=== PATIENT | female | born 1990 | race Caucasian/White ===

== ENCOUNTER 2024-07-07 19:47 | Outpatient (REF) | payer BC, SELFPAY ==
[2024-07-10 14:08] LABS: Age Gdln ACOG Testing Note (.); HPV Aptima Negative (Negative); IGP, Aptima HPV, rfx 16/18,45 Note (.)
== END 2024-07-07 19:48 | disposition home or self-care (01) ==
LOC: LAB 19:47
PROVIDERS: PCP Family Medicine; Visit Provider Obstetrics & Gynecology
DX: Z01.419 Encounter for gynecological examination (general) (routine) without abnormal findings (principal)
CPT/HCPCS: 87624; 88175

== ENCOUNTER 2024-11-24 08:06 | Outpatient (OUT) | payer OTHER, SELFPAY ==
--- OUTSIDE RECORDS SUMMARY | 2024-11-24 08:13 | XMS_ITS | Encounter Summary ---
Author Organization [facility] Address [address] [place] [address] Care Team Providers Care Ranch Rider Name Role Phone Deja Ramsay MD Primary Care Provider [phone] Encounter Details Date Type Department Care Team (Late st Contact Info) Description 07/16/2024 Orders Only [facility] [address] [place] [address] Karly Acevedo MA [address] [place] [address] Social History Tobacco Use Types Packs/Day Years Used Date Smoking Tobacco: Never Smokeless Tobacco: Never Alcohol Use Standard Drinks/Week Comments Never 0 (1 standard drink = 0.6 oz pur e alcohol) B1300 Health Literacy Answer Date Recor ded How often do you need to hav e someone help you when you read instructions, pamphlets, or other written material from your doctor or pharmacy? Never 11/11/2023 Social Connection and Isolat ion Panel [NHANES] Answer Date Recorded In a typical week, how many times do you talk on the phone with family, friends, or neighbors? More than three times a week 11/11/2023 How often do you get togethe r with friends or relatives? More than three times a week 11/11/2023 How often do you attend chur ch or mandaen services? 1 to 4 times per year 11/11/2023 Do you belong to any clubs o r organizations such as taoist groups, unions, fraternal or athletic groups, or school groups? Yes 11/11/2023 How often do you attend meet ings of the clubs or organizations you belong to? More than 4 times per year 11/11/2023 Are you , , di vorced, , never , or living with a partner? 11/11/2023 AUDIT-C Answer Date Recorded Q1: How often do you have a drink containing alc ohol? Monthly or less 11/11/2023 Q2: How many drinks containi ng alcohol do you have on a typical day when you are drinking? 1 or 2 11/11/2023 Q3: How often do you have si x or more drinks on one occasion? Never 11/11/2023 Overall Financial Resource Strain (CARDIA) Answe r Date Recorded How hard is it for you to pa y for the very basics like food, housing, medical care, and heating? Not very hard 11/11/2023 [facility] - Occupational Stress Questionnaire Answer Date Recorded Do you feel stress - tense, restless, nervous, or anxious, or unable to sleep at night because your mind is troubled all the time - these days? Rather much 11/11/2023 Exercise Vital Sign Answer Date Recorde d On average, how many days pe r week do you engage in moderate to strenuous exercise (like a brisk walk)? 3 days 11/11/2023 On average, how many minutes do you engage in exercise at this level? 30 min 11/11/2023 Hunger Vital Sign Answer Date Recorded Within the past 12 months, y ou worried that your food would run out before you got the money to buy more. Sometimes true Within the past 12 months, t he food you bought just didn't last and you didn't have money to get more. Sometimes true PRAPARE - Transportation Answer Date Re corded In the past 12 months, has l ack of transportation kept you from medical appointments or from getting medications? No 10/23 In the past 12 months, has l ack of transportation kept you from meetings, work, or from getting things needed for daily living? No 11/11/2023 Housing Stability Vital Sign Answer Thien e Recorded In the last 12 months, was t here a time when you were not able to pay the mortgage or rent on time? No 11/11/2023 In the past 12 months, how m any times have you moved where you were living? 1 11/11/2023 At any time in the past 12 m [facility], were you homeless or living in a fdc (including now)? No 11/11/2023 Comments Unknown Sex and Gender Information Value Date Recorded Sex Assigned at Female 11/11/2023 10:34 AM EDT Legal Sex Female 6:43 PM EDT Gender Identity Female 11/11/2023 10:34 AM EDT Sexual Orientation Not on file documented as of this encounter Plan of Treatment Upcoming Encounters Date Type Department Care Team (Late st Contact Info) Description 02/08/2025 9:50 AM EST Office Visit [facility] [address] [place] [address] Cole Yates DO [address] [place] [address] documented as of this encounter Procedures Procedure Name Priority Date/Time Associated Diagnosis Comments PAP SMEAR Routine 07/07/2024 12:00 AM EDT documented in this encounter Results * Pap Smear (07/07/2024 12:00 AM EDT) Swab Cervical swab / Unknown Cole Yates DO LAB CYTOLOGY ORDERABLES Final Re sult EXTERNAL LAB documented in this encounter Visit Diagnoses Not on filedocumented in this encounter Care Teams Ranch Rider Relationship Specialty Start Date End Date Deja Ramsay MD [address] [place] [address] PCP - General Family Medicine 07/31/22 documented as of this encounter
--- OUTSIDE RECORDS SUMMARY | 2024-11-24 08:13 | XMS_ITS | Clinical Summary ---
Author Organization [facility] Address [address] [place] [address] Care Team Providers Care Sap Ppm Consultant Name Role Phone Deja Ramsay MD Primary Care Provider [phone] Allergies Active Allergy Reactions Criticality Noted Date Comments Latex Hives,Rash Medium 11/14/2015 Other Reaction(s): Not available, Unknown Sulfamethoxazole-Trimetho prim 11/12/2023 Other Reaction(s): Unknown Medications esomeprazole (NexIUM) [address] capsule Take 1 capsule every day by oral route as needed. Active fluticasone (Flonase) 50 MCG/ACT nasal spray 1 (one) time each day at the same time Active sertraline (Zoloft) 25 MG tabletIndicatio ns:Adjustment disorder with anxiety Take 1 tablet (25 mg) by mouth 1 (one) time each day at the same time 100 tablet 3 12/10/2023 Active metFORMIN XR (Glucophage-XR) 500 MG 24 hr tabletIndicatio ns:Insulin resistance Take 2 tablets (1,000 mg) by mouth in the evening. Take with meals Do not crush, chew, or split. 60 tablet 11 10/06/2024 10/07/19 26 Active letrozole (Femara) 2.5 MG chemo tabletIndicatio ns:Anovulation Take 1 tablet (2.5 mg total) by mouth Daily for 5 days. 5 tablet 11/03/2024 11/09/19 25 Active Problems Problem Noted Date Diagnosed Date Adjustment disorder with anxiety 11/12/2023 Constipation 11/12/2023 Obesity (BMI 35.0-39.9 without comorbidity) 10/24 Skin sensation disturbance 11/12/2023 History of gestational diabetes 11/12/2023 Other fatigue 11/12/2023 Hydronephrosis 11/08/2016 Anxiety 11/10/2014 Irritable bowel syndrome 10/01/2007 Gastroesophageal reflux disease 07/12/1999 Encounters Date Type Department Care Team Description 11/19/2024 Telephone [facility] [address] [place] [address] Cole Yates DO 11/03/2024 Telephone [facility] [address] [place] [place] [address] Maritza Nava LPN 10/06/2024 9:50 AM EDT Office Visit [facility] [address] [place] [place] [address] Cole Yates DO Abnormal uterine bleeding (AUB); Insulin resistance 10/06/2024 Bamboo flowsheet [facility] [address] [place] [place] [address] Cole Yates DO 09/29/2024 Travel from Last 3 Months Immunizations Immunization Administration Dates Next Due DTP 11/09/1994, 2,1990,1990,0 1990 Hep B, Adolescent or Pediatric 05/26/1999,1998,10/31/1998 HiB, unspecified 11/09/1994,1990, 1,1990 MMR 10/14/2002,08/31/1991 OPV 11/09/1994,08/31/1991,1990 ,1990 Tdap 08/15/2016,10/04/2008 Family History Medical History Relation Name Comments Asthma Brother Cody henry Hypertension Maternal Grandfather Joseluis palencialodylon Arthritis Maternal Grandmother Sarah henry Stroke Paternal Grandfather Fazal henry Arthritis Paternal Grandmother Sarah henry Cancer Paternal Grandmother Sarah henry Kidney disease Paternal Grandmother Sarah henry Relation Name Status Comments Brother Cody henry Maternal Grandfather Joseluis hill Maternal Grandmother Sarah henry Paternal Grandfather Fazal henry Paternal Grandmother Sarah henry Social History Tobacco Use Types Packs/Day Years Used Date Smoking Tobacco: Never Smokeless Tobacco: Never Tobacco Cessation:Counseling Given: Not Answered Alcohol Use Standard Drinks/Week Comments Never 0 [...] 11/11/2023 How often do you attend chur or worship services? 1 to 4 times per year 11/11/2023 Do you belong to any clubs o r organizations such as hoahaoism groups, unions, fraternal or athletic groups, or [...] care, and heating? Not very hard 11/11/2023 [facility] [place] [facility] - Occupational Stress [...] any time in the past 12 m [facility], were you homeless or living in a long term (including now)? No 11/11/2023 Comments No Sex and Gender Information Value Date Recorded Sex Assigned at Female 11/11/2023 10:34 AM EDT Legal Sex Female 6:43 PM EDT Gender Identity Female 11/11/2023 10:34 AM EDT Sexual Orientation Not on file Last Filed Vital Signs Vital Sign Reading Time Taken Comments Blood Pressure 116/80 10/06/2024 9:47 AM EDT Pulse 79 11/12/2023 9:41 AM EDT Temperature - - Respiratory Rate - - Oxygen Saturation 97% 11/12/2023 9:41 AM EDT Inhaled Oxygen Concentration - - Weight 100 kg (220 lb 12 oz) 10/06/2024 9:47 AM EDT Height 165.1 cm (5' 5 ) 11/12/2023 9:41 AM EDT Body Mass Index 36.73 11/12/2023 9:41 AM EDT Plan of Treatment Upcoming Encounters Date Type Department Care Team (Late st Contact Info) Description 02/08/2025 9:50 AM EST Office Visit [facility] [address] [place] [id number] Cole Yates DO [address] [facility] [address] [place], [place] [id number] Health Maintenance Due Date Last Done Comments Influenza Vaccine (#1) 2024 Cervical Cancer Screening 07/07/2029 HPV/Cotest 07/07/2029 Pap Smear 07/07/2029 07/07/2024 Procedures Procedure Name Priority Date/Time Associated Diagnosis Comments PAP SMEAR Routine 07/07/2024 12:00 AM EDT from Last 3 Months or Most Recently Relevant to Health Maintenance Results * Pap Smear (07/07/2024 12:00 AM EDT) Swab Cervical swab / Unknown us Cole Yates DO LAB CYTOLOGY ORDERABLES Final Re sult EXTERNAL LAB from Last 3 Months or Most Recently Relevant to Health Maintenance Insurance [employer] Care Teams Sap Ppm Consultant Relationship Specialty Start Date End Date Deja Ramsay MD [address] [facility] [address] [place], [place] [id number] PCP - General Family Medicine 07/31/22
--- OUTSIDE RECORDS SUMMARY | 2024-11-24 08:13 | XMS_ITS | Encounter Summary ---
Author Organization [facility] Address [address] [place] [address] Care Team Providers Care Ware Finisher Name Role Phone Deja Ramsay MD Primary Care Provider [phone] Encounter Details Date Type Department Care Team (Late st Contact Info) Description 11/19/2024 Telephone [facility] [address] [place] [address] Cole Yates DO [address] [place], [facility] Social History Tobacco Use Types Packs/Day Years [...] often do you attend chur ch or moravian services? 1 to 4 times per year 11/11/2023 Do you belong to any clubs o r organizations such as rastafari groups, unions, fraternal or athletic groups, or [...] care, and heating? Not very hard 11/11/2023 [facility] [place] [facility] Occupat ional Health - Occupational Stress [...] any time in the past [address] m [facility], were you homeless or living in a fdc (including now)? No 11/11/2023 Comments No Sex and Gender Information Value Date Recorded Sex Assigned at Female 11/11/2023 10:34 AM EDT Legal Sex Female 6:43 PM EDT Gender Identity Female 11/11/2023 10:34 AM EDT Sexual Orientation Not on file documented as of this encounter Miscellaneous Notes * Telephone Encounter - aLdy Jeffers LPN - 11/19/2024 2:34 PM EDT Patient called the office left a voicemail advising that she is on the and her Day 21 is on Saturday which is a holiday and she is not sure if the hospital is open or not or if she would be ableto have this completed on Saturday. Patient was advised She would need to call the lab to Verify Hours for Saturday if they are closed she would be able to do this Draw on Saturday and we will have this noted in her chart that it would be day 22 if drawn on 11-24-2024. PVU states that she will call now pre-register and verify hours, she was made aware documented in chart if she goes Saturday it will be day 22 of cycle. documented in this encounter Plan of Treatment Upcoming Encounters Date Type Department Care Team (Late st Contact Info) Description 02/08/2025 9:50 AM EST Office Visit [facility] [address] [place] [address] Cole Yates DO [address] [place] [address] documented as of this encounter Visit Diagnoses Not on filedocumented in this encounter Care Teams Ware Finisher Relationship Specialty Start Date End Date Deja Ramsay MD [address] [facility] [address] [place] [address] PCP - General Family Medicine 07/31/22 documented as of this encounter
== END 2024-11-24 08:07 | disposition home or self-care (01) ==
LOC: LAB 08:11
PROVIDERS: PCP Family Medicine; Visit Provider Obstetrics & Gynecology
DX: N97.0 Female infertility associated with anovulation (principal)
CPT/HCPCS: 36415; 84144